=== PATIENT | male | born 1995 | race Caucasian/White ===

== ENCOUNTER 2025-05-19 20:16 | Emergency (ER) | payer OTHER ==
[~2025-05-19] VITALS: Ht 167.6 cm; Wt 77.0 kg
[2025-05-19 20:23] VITALS: O2SAT 98
[2025-05-19] MEDS ORDERED: BO1 TP (21:33)
[2025-05-19] MEDS ORDERED: CLIN-194 MT (21:33)
[2025-05-19 21:53] VITALS: BP 118/79; PULSE 92; RESP 16; TEMP 37.2; O2SAT 100
== END 2025-05-19 21:55 | disposition home or self-care (01) ==
LOC: ER 20:16
DX: L02.411 Cutaneous abscess of right axilla (principal); Z86.14 Personal history of Methicillin resistant Staphylococcus aureus infection
CPT/HCPCS: 99283